=== PATIENT | female | born 1995 | race Caucasian/White ===

== ENCOUNTER 2016-09-11 19:39 | Emergency (ER) ==
--- NOTE | 2016-09-11 22:00 | PROVIDER DOCUMENTATION ---
HPI-EENT General - General Chief Complaint: Headache Stated Complaint: MIGRAINE Time Seen by Provider: 09/11/16 20:46 Source: patient Allergies/Adverse Reactions: Patient Allergies Allergy/AdvReac Type Severity Reaction Status Date / Time azithromycin [From Zithromax] Allergy Intermediate HIVES Verified 07/23/16 11:20 - History of Present Illness-EENT General Nature of Presenting Problem: 20 y/o F with no chronic medical problems presents with sinus congestion, ST, body aches, fever x 3 days. Reports sick contact with daughter with RSV. She reports left sided throbbing pain over frontal and maxillary sinuses that radiates to right ear and severe sinus congestion. Denies CP, SOB, neck stiffness. She denies any history of migraines. EENT Location: reports: facial Quality of Pain: reports: throbbing Onset/Duration: reports: 3 days ago Timing: reports: still present Prearrival Treatment: Initiated other (advil) Associated Symptoms: reports: cough, facial pain/swelling, fever, sore throat. denies: ear drainage Review of Systems - Adult - REVIEW OF SYSTEMS - ADULT Constitutional: reports: no symptoms reported. denies: chills, fever Eyes: reports: no symptoms reported Ears, Nose, Mouth & Throat: reports: see HPI Cardiovascular: reports: no symptoms reported. denies: chest pain Respiratory: reports: cough. denies: shortness of breath, wheezing Gastrointestinal: reports: no symptoms reported. denies: abdominal pain, nausea , vomiting Genitourinary: reports: no symptoms reported Musculoskeletal: reports: muscle aches Integumentary: reports: no symptoms reported. denies: itching, rash Neurological: reports: no symptoms reported. denies: numbness, paresthesia, slurred speech Psychiatric: reports: no symptoms reported Endocrine: reports: no symptoms reported Hematologic/Lymphatic: reports: no symptoms reported Allergic/Immunologic: reports: no symptoms reported All Other Systems: Reviewed and Negative Past History - Adult - PAST MEDICAL HISTORY-ADULT Review of Records: reports: Old Records Reviewed, Nursing Assessment Review, Medications Reviewed, Social history reviewed & non-contributory. Major Childhood Illnesses: reports: denies history Cardiovascular: reports: denies history Respiratory: reports: asthma Gastrointestinal: reports: denies history Obstetrical/Gynecological: reports: denies history Genitourinary: reports: denies history Musculoskeletal: reports: denies history Neurological: reports: denies history Endocrine/Immune: reports: denies history Other Conditions: reports: denies history - PRIOR SURGERIES/PROCEDURES Surgical/Procedure History: reports: reviewed, not pertinent - IMMUNIZATION STATUS Childhood Immunizations: See Nurse Assessment Flu Vaccine: See Nurse Assessment - FAMILY HISTORY Family History: reviewed, not pertinent Physical Exam- EENT - Physical Exam EENT Initial Vital Signs Reviewed: Yes General Appearance: appears well, alert, no apparent distress Eye Exam: bilateral eye: normal inspection, PERRL, EOMI Ear Exam: bilateral ear: auricle normal, canal normal, TM normal Nasal Exam: normal inspection Throat Exam: normal mouth inspection, pharynx normal Neck: non-tender, full range of motion, supple, normal inspection. negative: Brudzinski's sign, lymphadenopathy, meningismus Respiratory: chest non-tender, lungs clear, normal breath sounds, no pleuratic chest pain, no respiratory distress, no accessory muscle use Cardiovascular: normal peripheral pulses, regular rate, rhythm, no edema, no gallop, no JVD, no murmur Abdominal Exam: normal bowel sounds, non tender, soft, no organomegaly, no pulsatile mass Lymphatic: no adenopathy Back Exam: normal inspection, no CVA tenderness, no vertebral tenderness Extremity: normal gait, normal inspection Integumentary: normal color, normal turgor, warm/dry Neurologic: radiological health specialist II-XII nml as tested, grossly normal, no motor/sensory deficits . negative: facial droop, focal weakness, motor weakness, sensory deficit Psych/Mental Status: AL, normal mood/affect, normal thought content, normal thought process, oriented x 3 Progress - PLAN OF CARE/RESULTS Progress/Plan/Lab Results: Laboratory Tests 09/11/16 09/11/16 09/11/16 20:20 20:20 21:23 Urine Test NEGATIVE Influenza A (Rapid) NEGATIVE Influenza B (Rapid) NEGATIVE Group A Strep Rapid NEGATIVE Orders Category Date Time Status CHEST-2 VIEWS [RAD] Stat Exams 09/11/16 21:[address] Stat Lab 09/11/16 20:20 Completed Flu [INFLUENZA SCREEN PL] Stat Lab 09/11/16 20:20 Completed TEST-URINE [PREG] Stat Lab 09/11/16 21:22 Ordered TEST-URINE [PREG] Stat Lab 09/11/16 21:23 Completed Ketorolac [Toradol] Med 09/11/16 23:49 Discontinued 60 mg IM NOW ONE Vital Signs Temp Pulse Resp BP Pulse Ox 09/11/16 21:24 99.6 F 09/11/16 20:12 100.1 F H 107 H 18 126/74 99 azithromycin [From Zithromax] Allergy (Intermediate, Verified 07/23/16 11:20) HIVES No Home Medications 09/11/16 Laboratory 09/11/16 09/11/16 09/11/16 21:23 20:20 20:20 Urine Test NEGATIVE Influenza A (Rapid) NEGATIVE Influenza B (Rapid) NEGATIVE Group A Strep Rapid NEGATIVE - XRAY 1 XRAY Study: Chest Impression: Normal Departure - Departure Time of Disposition Order: 00:26 DIAGNOSIS: Sinusitis, URI (upper respiratory infection) Disposition: HOME 01 Certified Medical Emergency: Emergent Condition: Good Additional Instructions: ED Follow Up Instructions: You have been treated by a care provider in the Emergency Department. These instructions are being provided to you so you can have an understanding of how to care for yourself upon discharge. Upon discharge from the Emergency Department, you are responsible for making arrangements for follow-up care by a physician of your choice. Take all prescribed medications as directed. Return to the Emergency Department immediately for any new or worsening symptoms. You may call the Physician Referral phone number at [phone] to obtain a list of Physicians who are taking new patients. Prescriptions: Doxycycline 100 mg PO BID #14 tablet Fluticasone 50 Mcg Nasal Somers [Flonase] 1 spray RAYO DAILY #1 bottle Guaifenesin/Dextromethorphan [Mucinex Dm ER 1,200-60 mg Tab] 1 each PO BID #20 tbmp.12hr Attestation - Physician/ Mid-level Attestation Patient care was provided by Mid-level provider (WAREHOUSE MAN/PA):: Yes Mid-level provider:: Chitra Benjamin Mid-level documentation review:: The Mid-level provider documentation, treatment plan and medical decision making was reviewed by the physician who agrees with all treatment and medical decision making by the MLP.
[2016-09-11] MEDS ORDERED: TORADOL IM ONE (23:49)
[2016-09-12] MEDS ORDERED: DECADRON IM ONE (00:33)
[2016-09-12] MEDS ORDERED: TYLENOL ONE (01:03)
[2016-09-12] MEDS ORDERED: DOXYCYCLINE ONE (01:03)
[2016-09-12] MEDS ORDERED: DOXYCYCLINE PO ONE (01:10)
[2016-09-12] MEDS ORDERED: TYLENOL PO ONE (01:11)
[2016-09-12 01:14] VITALS: BP 125/86
--- NOTE | 2016-09-12 09:27 | Diag Imaging Result Document ---
PROCEDURE NAME: CHEST-2 VIEWS - 09/11/2016 PA AND LATERAL RADIOGRAPHS OF THE CHEST: COMPARISON: 09/28/2015. FINDINGS: The lungs are grossly clear. There is no discrete pleural fluid collection or evidence of pneumothorax. The cardiomediastinal silhouette and upper airway are grossly unremarkable. IMPRESSION: No evidence of acute chest pathology.
== END 2016-09-12 01:13 | disposition home or self-care (01) ==
LOC: P.ED 19:39
DX: J32.9 Chronic sinusitis, unspecified (principal); J06.9 Acute upper respiratory infection, unspecified; R51 Headache; R09.81 Nasal congestion; J02.9 Acute pharyngitis, unspecified; M79.1 Myalgia; R50.9 Fever, unspecified; J34.89 Other specified disorders of nose and nasal sinuses; H92.01 Otalgia, right ear; R05 Cough
CPT/HCPCS: 71020; 81025; 87081; 87430; 87804; 96372